=== PATIENT | female | born 1980 | race Caucasian/White ===

== ENCOUNTER 2020-06-14 17:27 | Inpatient (IN) | payer OTHER ==
[~2020-06-14] VITALS: Ht 170.2 cm; Wt 80.3 kg
[2020-06-14 17:38] VITALS: BP_SYST 142
[2020-06-14] MEDS ORDERED: ONDANSETRON HCL 4 MG/2 ML VIAL IVP ONE (18:30)
[2020-06-14] MEDS ORDERED: NACL 0.9% 1,000 ML IV ONE (18:30)
[2020-06-14] MEDS ORDERED: MECLIZINE HCL 25 MG TABLET (ANITVERT) PO ONE (18:30)
[2020-06-14 19:27] LABS: BASOPHILS % (AUTO) 0.4 % (0.0-2.0); EOSINOPHILS % (AUTO) 0.3 % (0.0-4.0); HEMATOCRIT 36.1 % (36-48); HEMOGLOBIN 11.6 g/dL (12.0-16.0); LYMPHOCYTES # (AUTO) 0.8 K/uL (1.0-5.5); LYMPHOCYTES % (AUTO) 7.3 % (20.5-51.5); MEAN CORPUSCULAR HEMOGLOBIN 25 pg (27-31); MEAN CORPUSCULAR HGB CONC 32 % (32-36); MEAN CORPUSCULAR VOLUME 76 fL (79.0-98.0); MONOCYTES # (AUTO) 0.6 K/uL (0.0-1.0); MONOCYTES % (AUTO) 5.7 % (1.7-9.3); NEUTROPHILS # (AUTO) 9.5 K/uL (1.8-7.7); NEUTROPHILS % (AUTO) 86.3 % (40.0-70.0); PLATELET COUNT (AUTO) 213 K/uL (130-430); RED BLOOD CELL COUNT(AUTO) 4.75 MIL/uL (4.2-6.2); RED CELL DISTRIBUTION WIDTH 16.4 % (9.0-15.0)
[2020-06-14 19:40] LABS: ANION GAP 11 (5-15); CALCIUM 8.8 mg/dL (8.4-11.0); CHLORIDE 103 mmol/L (98-107); CREATININE 0.73 mg/dL (0.55-1.30); GLUCOSE 114 mg/dL (70-99); POTASSIUM 4.2 mmol/L (3.5-5.1); SODIUM SERUM 139 mmol/L (136-145); UREA NITROGEN, BLOOD 12 mg/dL (8-21)
[2020-06-14 19:41] LABS: GFR AFRICAN AMERICAN 113 mL/min (>90)
[2020-06-14 19:49] LABS: ALANINE AMINOTRANSFERASE 21 U/L (12-78); ALBUMIN 4.3 g/dL (3.4-4.8); ASPARTATE AMINOTRANSFERASE 14 U/L (10-37); TOTAL BILIRUBIN 0.3 mg/dL (0.0-1.0)
[2020-06-14] MEDS ORDERED: SYN50 PO (20:44)
[2020-06-14] MEDS ORDERED: FLUT1DIS3 IH (20:44)
[2020-06-14] MEDS ORDERED: PRO10 PO (20:44)
[2020-06-14] MEDS ORDERED: DILTIAZEM HCL 25 MG/5 ML VIAL IVP ONE (20:45)
[2020-06-14] MEDS ORDERED: APIXABAN 2.5 MG TABLET PO ONE (21:15)
[2020-06-14] MEDS ORDERED: METOPROLOL TARTRATE 50 MG TABLET PO ONE (21:15)
[2020-06-14 21:19] LABS: FREE T4 (FREE THYROXINE) 1.2 ng/dl (0.8-1.5); THYROID STIMULATING HORMONE 1.3 uIu/mL (0.36-3.74)
[2020-06-14 21:35] LABS: PROTHROMBIN TIME 10.4 SECS (9.5-12.5)
[2020-06-14 22:20] VITALS: BP_SYST 146
[2020-06-14] MEDS: NACL 0.9% 1,000 ML IV SCH (22:45)
[2020-06-14 23:24] LABS: BILIRUBIN,URINE NEGATIVE (NEGATIVE); BLOOD, URINE NEGATIVE (NEGATIVE); CLARITY/URINE CLEAR (CLEAR); COLOR,URINE YELLOW (YELLOW); GLUCOSE,URINE NEGATIVE (NEGATIVE); KETONES,URINE 3+ (NEGATIVE); LEUKOCYTE ESTERASE ,URINE NEGATIVE (NEGATIVE); NITRITE, URINE NEGATIVE (NEGATIVE); PROTEIN URINE NEGATIVE (NEGATIVE); UROBILINOGEN,URINE 0.2 (0.2-1.0)
[2020-06-15] VITALS: BP_SYST 143
[2020-06-15] MEDS: LEVOTHYROXINE SODIUM 0.05 MG TABLET PO SCH (06:10)
[2020-06-15 07:00] LABS: BASOPHILS % (AUTO) 0.3 % (0.0-2.0); EOSINOPHILS % (AUTO) 0.5 % (0.0-4.0); HEMATOCRIT 30.9 % (36-48); LYMPHOCYTES # (AUTO) 1.3 K/uL (1.0-5.5); LYMPHOCYTES % (AUTO) 18.4 % (20.5-51.5); MEAN CORPUSCULAR HEMOGLOBIN 25 pg (27-31); MEAN CORPUSCULAR HGB CONC 32 % (32-36); MEAN CORPUSCULAR VOLUME 76 fL (79.0-98.0); MONOCYTES # (AUTO) 0.6 K/uL (0.0-1.0); MONOCYTES % (AUTO) 8.6 % (1.7-9.3); NEUTROPHILS % (AUTO) 72.2 % (40.0-70.0); PLATELET COUNT (AUTO) 216 K/uL (130-430); RED BLOOD CELL COUNT(AUTO) 4.09 MIL/uL (4.2-6.2); RED CELL DISTRIBUTION WIDTH 16.4 % (9.0-15.0); WHITE BLOOD COUNT (AUTO) 6.9 K/uL (4.8-10.8)
[2020-06-15 07:01] LABS: ALBUMIN 3.4 g/dL (3.4-4.8); ANION GAP 10 (5-15); CALCIUM 7.8 mg/dL (8.4-11.0); CHLORIDE 105 mmol/L (98-107); CREATININE 0.62 mg/dL (0.55-1.30); GLUCOSE 83 mg/dL (70-99); POTASSIUM 3.8 mmol/L (3.5-5.1); SODIUM SERUM 139 mmol/L (136-145); TOTAL BILIRUBIN 0.4 mg/dL (0.0-1.0); UREA NITROGEN, BLOOD 9 mg/dL (8-21)
[2020-06-15] MEDS: NACL 0.9% 1,000 ML IV SCH (07:19)
[2020-06-15 07:52] LABS: GFR AFRICAN AMERICAN 136 mL/min (>90)
[2020-06-15 08:06] LABS: ASPARTATE AMINOTRANSFERASE 15 U/L (10-37)
[2020-06-15 08:07] LABS: ALANINE AMINOTRANSFERASE 15 U/L (12-78)
[2020-06-15 08:10] VITALS: BP_SYST 123
[2020-06-15] MEDS: FLUoxetine HCL 10 MG CAPSULE (PROzac) PO SCH (08:44)
[2020-06-15] MEDS: METOPROLOL TARTRATE 50 MG TABLET PO SCH ×2 (08:45→20:18)
[2020-06-15] MEDS ORDERED: APIXABAN 2.5 MG TABLET PO SCH (09:00)
[2020-06-15 12:10] VITALS: BP_SYST 130
[2020-06-15] MEDS ORDERED: ACETAMINOPHEN 325 MG TABLET PO PRN ×2 (12:15)
[2020-06-15] MEDS ORDERED: ACETAMINOPHEN 325 MG TABLET ONE (12:25)
[2020-06-15 13:00] LABS: CHOLESTEROL 206 mg/dL (<200); HDL CHOLESTEROL 50 mg/dL (>55); LDL CHOLESTEROL 143 mg/dL (<100)
[2020-06-15] MEDS ORDERED: MECLIZINE HCL 25 MG TABLET (ANITVERT) PO ONE (13:00)
[2020-06-15 13:01] LABS: TRIGLYCERIDES 86 mg/dL (30-150)
[2020-06-15] MEDS: MECLIZINE HCL 25 MG TABLET (ANITVERT) PO SCH ×2 (13:38→20:18)
[2020-06-15 16:30] VITALS: BP_SYST 124
[2020-06-15] MEDS ORDERED: CHOLECALCIFEROL (VITAMIN D3) 2,000 UNIT TABLET PO ONE (16:45)
[2020-06-15 20:00] VITALS: BP_SYST 125
[2020-06-15] MEDS: PANTOPRAZOLE SODIUM 40 MG TAB PO SCH (21:07)
[2020-06-16] VITALS: BP_SYST 127
[2020-06-16] MEDS: LEVOTHYROXINE SODIUM 0.05 MG TABLET PO SCH (06:27)
[2020-06-16] MEDS: CHOLECALCIFEROL (VITAMIN D3) 2,000 UNIT TABLET PO SCH (08:42)
[2020-06-16] MEDS: ASPIRIN 81 MG TAB.CHEW PO SCH (08:42)
[2020-06-16] MEDS: ATORVASTATIN 10 MG TABLET PO SCH (08:42)
[2020-06-16] MEDS: FLUoxetine HCL 10 MG CAPSULE (PROzac) PO SCH (08:42)
[2020-06-16] MEDS: MECLIZINE HCL 25 MG TABLET (ANITVERT) PO SCH ×3 (08:42→21:56)
[2020-06-16] MEDS: METOPROLOL TARTRATE 50 MG TABLET PO SCH ×2 (08:45→21:57)
[2020-06-16 11:23] VITALS: BP_SYST 115
[2020-06-16 15:32] VITALS: BP_SYST 130
[2020-06-16] MEDS ORDERED: LORATADINE 10 MG TABLET PO ONE (18:00)
[2020-06-16] MEDS: ACYCLOVIR 400 MG TABLET PO SCH ×2 (18:13→21:56)
[2020-06-16 20:00] VITALS: BP_SYST 119
[2020-06-16] MEDS: PANTOPRAZOLE SODIUM 40 MG TAB PO SCH (21:56)
[2020-06-17] VITALS: BP_SYST 126
[2020-06-17] MEDS: ACYCLOVIR 400 MG TABLET PO SCH ×4 (06:16→17:40)
[2020-06-17] MEDS: LEVOTHYROXINE SODIUM 0.05 MG TABLET PO SCH (06:16)
[2020-06-17 06:25] LABS: BASOPHILS % (AUTO) 0.7 % (0.0-2.0); EOSINOPHILS # (AUTO) 0.2 K/uL (0.0-0.4); EOSINOPHILS % (AUTO) 3.8 % (0.0-4.0); HEMATOCRIT 32.6 % (36-48); HEMOGLOBIN 10.6 g/dL (12.0-16.0); LYMPHOCYTES # (AUTO) 1.6 K/uL (1.0-5.5); MEAN CORPUSCULAR HEMOGLOBIN 25 pg (27-31); MEAN CORPUSCULAR HGB CONC 33 % (32-36); MEAN CORPUSCULAR VOLUME 76 fL (79.0-98.0); MONOCYTES # (AUTO) 0.5 K/uL (0.0-1.0); MONOCYTES % (AUTO) 8.3 % (1.7-9.3); NEUTROPHILS # (AUTO) 3.1 K/uL (1.8-7.7); NEUTROPHILS % (AUTO) 57.2 % (40.0-70.0); PLATELET COUNT (AUTO) 216 K/uL (130-430); RED BLOOD CELL COUNT(AUTO) 4.29 MIL/uL (4.2-6.2); RED CELL DISTRIBUTION WIDTH 16.4 % (9.0-15.0); WHITE BLOOD COUNT (AUTO) 5.5 K/uL (4.8-10.8)
[2020-06-17 07:02] LABS: CALCIUM 7.8 mg/dL (8.4-11.0); CREATININE 0.75 mg/dL (0.55-1.30); POTASSIUM 3.5 mmol/L (3.5-5.1)
[2020-06-17 07:18] LABS: TOTAL IRON BIND. CAPACITY 318 ug/dL (250-450)
[2020-06-17 08:00] VITALS: BP_SYST 133
[2020-06-17] MEDS: FLUoxetine HCL 10 MG CAPSULE (PROzac) PO SCH (08:19)
[2020-06-17] MEDS: CHOLECALCIFEROL (VITAMIN D3) 2,000 UNIT TABLET PO SCH (08:19)
[2020-06-17] MEDS: ATORVASTATIN 10 MG TABLET PO SCH (08:19)
[2020-06-17] MEDS: ASPIRIN 81 MG TAB.CHEW PO SCH (08:19)
[2020-06-17] MEDS: METOPROLOL TARTRATE 50 MG TABLET PO SCH (08:20)
[2020-06-17] MEDS: MECLIZINE HCL 25 MG TABLET (ANITVERT) PO SCH ×2 (08:20→15:50)
[2020-06-17] MEDS ORDERED: LORATADINE 10 MG TABLET PO SCH (09:00)
[2020-06-17 11:25] VITALS: BP_SYST 130
[2020-06-17] MEDS ORDERED: ACYC400T PO (15:25)
[2020-06-17] MEDS ORDERED: METO-442 PO (15:25)
[2020-06-17] MEDS ORDERED: LORA10TA7 PO (15:25)
[2020-06-17] MEDS ORDERED: ASA81 PO (15:25)
[2020-06-17] MEDS ORDERED: MECL-160 PO (15:25)
[2020-06-17] MEDS ORDERED: PRO40 PO (15:25)
[2020-06-17] MEDS ORDERED: LIP10 PO (15:25)
[2020-06-17 15:41] VITALS: BP_SYST 134
== END 2020-06-17 18:49 | disposition home or self-care (01) | DRG 149 ==
LOC: SED 17:27 → STU 20:28
PROVIDERS: ADMIT Internal Medicine; ATTEND Internal Medicine
DX: H83.09 Labyrinthitis, unspecified ear (principal); H81.10 Benign paroxysmal vertigo, unspecified ear; I48.91 Unspecified atrial fibrillation; D50.0 Iron deficiency anemia secondary to blood loss (chronic); I10 Essential (primary) hypertension; E03.9 Hypothyroidism, unspecified; J45.909 Unspecified asthma, uncomplicated; E78.5 Hyperlipidemia, unspecified; N92.0 Excessive and frequent menstruation with regular cycle; Z20.828 Contact with and (suspected) exposure to other viral communicable diseases; Z79.899 Other long term (current) drug therapy; Z87.891 Personal history of nicotine dependence
CPT/HCPCS: 36415; 70450-TC; 70551; 71045; 80048; 80053; 80061; 81003; 82306; 82607; 83540-TC; 83550-TC; 83735-TC; 83880; 84439; 84443-TC; 84484; 84703; 85025; 85610-TC; 85730-TC; 93005; 93306; 93880; 96361; 96374; 96375; 99291; G0378; J2405; J3490; J7030; J8597

== ENCOUNTER 2020-11-27 07:46 | Outpatient (CLI) | payer OTHER ==
[~2020-11-27 07:46] MED LIST: ACYC400T19 PO; ASA81 PO; FLUT1DIS3 IH; LIP10 PO; LORA10TA7 PO; MECL-160 PO; METO-442 PO; PRO10 PO; PRO40 PO; SYN50 PO
[2020-11-27 08:42] LABS: BASOPHILS % (AUTO) 0.6 % (0.0-2.0); EOSINOPHILS # (AUTO) 0.2 K/uL (0.0-0.4); EOSINOPHILS % (AUTO) 4.4 % (0.0-4.0); HEMATOCRIT 41.5 % (36-48); HEMOGLOBIN 14.2 g/dL (12.0-16.0); LYMPHOCYTES % (AUTO) 22.1 % (20.5-51.5); MEAN CORPUSCULAR HEMOGLOBIN 33 pg (27-31); MEAN CORPUSCULAR HGB CONC 34 % (32-36); MEAN CORPUSCULAR VOLUME 96 fL (79.0-98.0); MONOCYTES # (AUTO) 0.4 K/uL (0.0-1.0); MONOCYTES % (AUTO) 8.1 % (1.7-9.3); NEUTROPHILS % (AUTO) 64.8 % (40.0-70.0); PLATELET COUNT (AUTO) 201 K/uL (130-430); RED BLOOD CELL COUNT(AUTO) 4.31 MIL/uL (4.2-6.2); RED CELL DISTRIBUTION WIDTH 13.2 % (9.0-15.0); WHITE BLOOD COUNT (AUTO) 4.6 K/uL (4.8-10.8)
[2020-11-27 09:31] LABS: ALBUMIN 3.8 g/dL (3.4-4.8); CALCIUM 8.3 mg/dL (8.4-11.0); CREATININE 0.81 mg/dL (0.55-1.30); THYROID STIMULATING HORMONE 0.99 uIu/mL (0.36-3.74); TOTAL BILIRUBIN 0.5 mg/dL (0.0-1.0)
[2020-11-28 08:06] LABS: FOLATE (FOLIC ACID) >20.0 ng/mL (>3.0)
== END 2020-11-27 20:50 | disposition home or self-care (01) ==
LOC: SLB 07:46
PROVIDERS: ATTEND Internal Medicine
DX: E78.5 Hyperlipidemia, unspecified (principal); E03.9 Hypothyroidism, unspecified; I10 Essential (primary) hypertension; E55.9 Vitamin D deficiency, unspecified
CPT/HCPCS: 36415; 80053; 80061; 82306; 82607; 82746; 84443; 85025